=== PATIENT | male | born 1995 | race Caucasian/White ===

== ENCOUNTER 2019-02-01 18:27 | Emergency (ER) | payer OTHER, SELFPAY ==
[~2019-02-01] VITALS: Ht 180.3 cm; Wt 115.0 kg
[2019-02-01 19:25] VITALS: BP 135/86
== END 2019-02-01 19:55 | disposition home or self-care (01) ==
LOC: M ED 18:27
DX: F43.0 Acute stress reaction (principal); F43.20 Adjustment disorder, unspecified; F17.200 Nicotine dependence, unspecified, uncomplicated

== ENCOUNTER 2020-03-22 13:30 | Emergency (ER) | payer SELFPAY | END 2020-03-22 16:35 | disposition home or self-care (01) | LOC: M ED 13:30 | DX: F32.9 Major depressive disorder, single episode, unspecified (principal); R45.851 Suicidal ideations; F17.200 Nicotine dependence, unspecified, uncomplicated ==